=== PATIENT | male | born 1970 | race Caucasian/White ===

== ENCOUNTER 2024-05-04 06:45 | Day surgery (SDC) | payer BC ==
[2024-05-04] MEDS: Lactated Ringers 1,000 ML IV SCH (07:06)
[2024-05-04] MEDS ORDERED: propofoL 500 MG/50 ML 50 ML ONE (07:35)
[2024-05-04] MEDS ORDERED: Lidocaine 2% 5 ML SDV ONE (07:36)
[2024-05-04] MEDS ORDERED: Propofol 200 MG/20 ML SDV ONE (08:25)
[2024-05-04] MEDS ORDERED: Lactated Ringers 1,000 ML IV SCH (09:00)
== END 2024-05-04 09:40 | disposition home or self-care (01) ==
LOC: MW.SDS 06:45 → EDBD 09:45
PROVIDERS: ATTEND Surgery
DX: Z12.11 Encounter for screening for malignant neoplasm of colon (principal); D12.3 Benign neoplasm of transverse colon; D12.5 Benign neoplasm of sigmoid colon
CPT/HCPCS: 45380; J2003; J2704; J7120; 00811